=== PATIENT | female | born 1945 | race Caucasian/White ===

== ENCOUNTER 2016-12-18 08:51 | Day surgery (SDC) | payer MEDICARE ==
[~2016-12-18 08:51] MED LIST: LACTATED RINGERS 1,000 ML IV SCH
[2016-12-18] MEDS ORDERED: LACTATED RINGERS 0 ML ONE (08:57)
[2016-12-18] MEDS ORDERED: IV START KIT ONE (09:11)
[2016-12-18] MEDS ORDERED: LACTATED RINGERS 1,000 ML ONE (09:11)
[2016-12-18] MEDS ORDERED: PROPOFOL 20 ML IV ONE (09:38)
== END 2016-12-18 10:36 | disposition home or self-care (01) ==
LOC: SDC 08:51
PROVIDERS: ATTEND Internal Medicine Gastroenterology
PROC: 0DJD8ZZ Inspection of Lower Intestinal Tract, Via Natural or Artificial Opening Endoscopic (ICD-10-PCS; principal; 2016-12-18)
DX: Z12.11 Encounter for screening for malignant neoplasm of colon (principal); Z80.0 Family history of malignant neoplasm of digestive organs; K57.30 Diverticulosis of large intestine without perforation or abscess without bleeding; R15.1 Fecal smearing; I10 Essential (primary) hypertension; E03.9 Hypothyroidism, unspecified; K27.7 Chronic peptic ulcer, site unspecified, without hemorrhage or perforation; G47.33 Obstructive sleep apnea (adult) (pediatric); F41.9 Anxiety disorder, unspecified; Z79.899 Other long term (current) drug therapy
CPT/HCPCS: 45378; J7120